=== PATIENT | female | born 1940 | race Caucasian/White ===

== ENCOUNTER 2019-12-30 10:33 | Inpatient (IN) | payer OTHER ==
[~2019-12-30] VITALS: Ht 7.6 cm; Wt 62.0 kg
[2019-12-30 10:34] VITALS: BP 175/90
[2019-12-30] MEDS ORDERED: PROAIR HFA8.5 GM INH (11:04)
[2019-12-30] MEDS ORDERED: NORVASC 2.5 MG2.5 M1 PO (11:05)
[2019-12-30] MEDS ORDERED: ASA81BEC PO (11:05)
[2019-12-30] MEDS ORDERED: OLANZAPINE10 M1 PO ×2 (11:06→15:15)
[2019-12-30] MEDS ORDERED: CALCIUM500 MG PO (11:06)
[2019-12-30] MEDS ORDERED: DEPAKOTE250 MG PO (11:07)
[2019-12-30] MEDS ORDERED: KLOR-CON 1010 MEQ PO (11:07)
[2019-12-30 11:08] LABS: ABSOLUTE NEUTROPHILS 4.2 thou/uL (1.4-8.2); BASOPHILS 0.8 % (0.0-2.0); EOSINOPHILS 3.1 % (0.0-3.0); HEMOGLOBIN 13.3 gm/dL (12.0-15.0); LYMPHOCYTES 24.3 % (24.0-44.0); MCH 28.5 pg (26.0-34.0); MCHC 32.5 g/dL (28.0-37.0); MCV 87.7 fL (80.0-100.0); MONOCYTES 7.1 % (1.0-8.0); PLATELET COUNT 253 thou/uL (150-400); POLYS 64.7 % (36.0-66.0); RBC 4.68 mil/uL (4.20-5.00); RDW 15.1 % (10.5-14.5); WBC 6.5 thou/uL (4.0-11.0)
[2019-12-30] MEDS ORDERED: TERBINAFINE HC250 MG PO (11:13)
[2019-12-30 11:15] LABS: URINE BILIRUBIN NEGATIVE (Negative); URINE BLOOD TRACE (Negative); URINE CLARITY SL CLOUDY; URINE COLOR YELLOW; URINE GLUCOSE-RANDOM* NEGATIVE (Negative); URINE KETONES NEGATIVE (Negative); URINE PROTEIN (DIPSTICK) NEGATIVE (Negative); URINE UROBILINOGEN 0.2 E.U./dl (0.2-1.0)
[2019-12-30 11:16] LABS: URINE LEUKOCYTES-REFLEX 3+ (Negative); URINE NITRITE-REFLEX POSITIVE (Negative)
[2019-12-30 11:19] LABS: CALCIUM 9.4 mg/dL (8.5-10.1); CREATININE 0.9 mg/dL (0.6-1.0); POTASSIUM 3.1 mmol/L (3.5-5.1)
[2019-12-30 11:25] LABS: ALBUMIN 3.9 g/dL (3.4-5.0); TOTAL BILIRUBIN 0.4 mg/dL (<0.1-1.0); TOTAL PROTEIN 7.4 g/dL (6.4-8.2)
[2019-12-30 11:30] LABS: BACTERIA-REFLEX >30 Many /HPF (None Seen); CASTS None Seen /LPF (None Seen); SQUAMOUS 0-3 Few /LPF (0-3)
[2019-12-30 11:31] LABS: CRYSTALS None Seen /LPF (None Seen); URINE RBC 3-10 Few /HPF (0-2); URINE WBC-REFLEX >25 Many /HPF (0-5)
[2019-12-30 12:18] VITALS: BP 175/90
[2019-12-30 12:58] VITALS: BP 175/90
[2019-12-30 13:30] VITALS: BP 172/88
--- NOTE | 2019-12-30 14:03 | NUR ---
PT. ARRIVED IN W/C FROM ER. SHE WAS BROUGHT TO ER BY HER SISTER. HER SISTER REPORTED SHE LIVES ALONE AND IS "OFF THE RAILS" HAVING DELUSIONS, AVH. 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 SISTER REPORTS SHE HAS CHRONIC SCHIZOPHRENIA, DELUSIONS, HTN, RT. KNEE REPLACEMENT (OCTOBER 2019). SISTER REPORTS SHE IS TAKING DEPAKOTE AND OLANZAPIME WHICH WAS INCREASED A COUPLE OF WEEKS AGO. THE SISTER BELIEVES SHE THAT HER MED CHANGES HAVE CAUSED HER TO "GO OFF THE RAILS". THE PATIENT IS ALERT AND ORIENTED X4. SHE IS UNCERTAIN OF HER MEDICATIONS. WILL HAVE TO CALL THE SISTER TO FIND OUT THE MEDICATIONS. THE PT. STATES SHE HAS TWO OLDER SISTERS THAT ARE "OVERBEARING" AND THAT SHE DOES NOT NEED TO BE HERE. ASHLEY Ryan SAW THE PATIENT. RN CALLED TO GET MED LIST FROM SISTER BUT SISTER REPORTED THE ENTIRE LIST IS IN THE PATIENT'S WALLET WHICH WAS SENT TO SECURITY. WILL RETRIEVE WALLET TO GET LIST. PT. EVIDENTUALLY GETS HER MEDS BY MAIL ORDER AND [facility] LOCALLY. PT. IS AMBULATORY, AND STEADY ON HER FEET. SHE WEARS EYEGLASSES AND ONLY HAS THE CLOTHES SHE IS WEARING. SHE STATES SHE HAS LOST 10 LBS RECENTLY BECAUSE HER DR. ASKED HER TO SO SHE DOES NOT PUT SO MUCH PRESSURE ON HER NEW REPLACED KNEE (LT).
--- NOTE | 2019-12-30 14:27 | NUR ---
AURE saw pt removing shoelaces from shoes. She kindly retrieved them from pt and gave them to pt's nurse. SW team will continue to follow pt during her stay on this unit.
[2019-12-30] MEDS ORDERED: SUPER THERAVIT1 EACH PO (15:13)
[2019-12-30 16:11] LABS: TSH 2.753 uIU/mL (0.358-3.740)
[2019-12-30 16:43] LABS: FOLIC ACID 38.5 ng/mL (8.6-58.9)
[2019-12-30 19:32] VITALS: BP 136/83
--- NOTE | 2019-12-30 21:26 | NUR ---
Assumed care on 12/30/19 @ 1900, in bed, awakens to voice and asks for book that she brought into facility with her. None found in locker. Family called and spoke with Niki. Chose to wear day clothes to bed instead of night clothes. A&O x 3-4. Cooperated with assessment and medication. Will continue to monitor for patient safety.
--- NOTE | 2019-12-31 00:04 | NUR ---
In bed, eyes closed, respirations even and unlabored. Bed in low position, will continue to monitor for patient safety.
[2019-12-31 03:16] VITALS: BP 136/83
[2019-12-31 07:30] VITALS: BP 167/97
[2019-12-31 09:30] VITALS: BP 154/80
--- NOTE | 2019-12-31 09:58 | EKG ---
[facility] [place] [address] ELECTROCARDIOGRAM REPORT Name: BHAVNA DUNCAN Room #: [facility] [place] ADM IN M.R.#: [id number] Admission: 12/30/19 Attend Phys: Keshia Andrade MD Discharge: Date of : 44 Report #: [id number] THIS REPORT FOR: cc: FAM - Family physician unknown FAM - Family physician unknown Jonathan Botello MD ~ THIS REPORT FOR: //name// [facility] Test Date: 2019-12-30 Test Time: 16:25:49 Pat Name: BHAVNA DUNCAN Department: Room: [facility] Gender: F [employer] Pulper: Kiran PERRY : 1940 Requested By: Erick Morrell Order Number: [id number] MD: Jonathan Botello Measurements Intervals [place] Rate: 71 P: 38 ID: 150 QRS: -58 QRSD: 123 T: 22 QT: 443 QTc: 482 Interpretive Statements Sinus rhythm RBBB and LAFB No previous ECG available for comparison Electronically Signed On 12-31-2019 9:57:16 CDT by Jonathan Botello [email or web address] <ELECTRONICALLY SIGNED> By: Jonathan Botello MD 12/31/19 0957 1625 1625 Jonathan Botello MD /KERMIT
--- NOTE | 2019-12-31 11:25 | NUR ---
PATIENT CARE ASSUMED AT 1930 - PATIENT ALERT AND ORIENTED. PLEASANT - STATED HAD GOOD NIGHT SLEEP. PATIENT ASKED WHY SHE WAS AT FACILITY. " CLAIMS SISTER'S DECISION THAT SHE NEEDED TO BE ADMITTED." STATES " SEEMS SHE ALWAYS KNOWS BEST." PATIENT HAD BREAKFAST IN HER ROOM. BLOOD PRESSURE ALITTLE HIGH 167/97 GIVEN NORVASC WITH MORNING MEDICATIONS AND DECREASED TO 154/80. PATIENT STATES N O PAIN OR DISCOMFORT WITH RIGHT KNEE. AMBULATES AROUND UNIT - ADVISED TO UTILIZE WALKER FOR STEADINESS. MEDICATIONS ADMINISTERED AND TOLERATED WELL. ATTENDED GROUP
--- NOTE | 2019-12-31 13:29 | NUR ---
SW called and spoke with pt's guardian and sister Radha Macias , and SW completed intake assesment and TP. Radha Macias reported that her sister has had HI symtoms for at least 30 years. Pt has 1 son who lives in[place] but is not a support. Radha Macias reported that this pt was giving away personal items and cleane dout her fridge this week. She also belives that her sister will change her dose on her meds when she feels that she was instructed through an internal instruction. Radha Macias reported that her sister is " very good " at not telling the truth of the severity of her hallucinations. Pt sees Dr Rivera for psycho therapy for 15 minutes a month and Dr Valentin Cain for psych at [facility] every 3 momths . Radha Macias is hoping that this pt will be able to return to her IL in [place] called " [facility]". SW suggested that pt have more wrap around services that include CM and in hoe visits. it is evident that the sisters are aging and she has her own physical limitations to commute and f/u as needed. SW provided supprt and guidance. Pt and her sister also go to a [place] support group through [facility] but only during the summer months so they don't drive home in the dark.
[2019-12-31 19:36] VITALS: BP 136/67
[2019-12-31 22:00] VITALS: BP 136/67
--- NOTE | 2020-01-01 01:01 | NUR ---
PATIENT WAS UP IN DINING ROOM TONIGHT UNTIL SHE WENT TO BED AROUND 2100. SHE IS A/0X3-4. SHE DENIES PAIN. SHE DENIES SI/HI/AVH. SHE STATES SHE IS TIRED TONIGHT AND WENT TO BED QUICKLY. SHE HAS BEEN CALM AND COOPERATIVE. SHE DENIES SI/HI/AVH. SHE IS INDEPENDENT WITH CARES. SHE IS NEATLY DRESSED. PATIENT HAS BEEN APPROPRIATE WITHOUT BEHAVIORS. BED IN LOW POSITION. ROUTINE ROUNDING FOR SAFETY ASSESSMENT. PATIENT SLEEPING AT THIS TIME. BED IN LOW POSITION. CONTINUING TO MONITOR.
[2020-01-01 05:33] LABS: CREATININE 0.7 mg/dL (0.6-1.0); MAGNESIUM 2.3 mg/dL (1.8-2.4); POTASSIUM 3.7 mmol/L (3.5-5.1)
[2020-01-01 08:27] VITALS: BP 136/80
--- NOTE | 2020-01-01 14:57 | NUR ---
SW checked in with Pt 1 on 1 due to group being canceled because of to COVID-19 restictions. Pt's mood seemed calm. Pt stated she did not have any concerns at this time. Pt was able to have a general conversation with SW about lunch and socializing. SW will continue to check in on Pt during her stay
--- NOTE | 2020-01-01 15:40 | NUR ---
ALERT AND ORIENTED X3. VERY QUIET AND PLESANT AND COOPERATIVE. AMBULATES WITH SLOW STEADY GAIT. DENIES PAIN. GOOD APPETITE FOR MEALS. CONTINENT OF BOWEL AND BLADDER. PARTICIPATE WITH GROUPS.
[2020-01-01 19:26] VITALS: BP 142/78
--- NOTE | 2020-01-01 23:42 | NUR ---
PROGRESS PT A/O X4 A LITTLE FORGETFUL. REQUESTED CLOTHING FOR TOMORROW REPEATEDLY ESCORTED TO LOCKER TO GET CLOTHING AND PT PROCEEDED TO PUT COAT ON AND GET PURSE STATED SHE WAS BEING DISCHARGED. RE-ORIENTED PT TO SETTING AND POC PT R/V UNDERSTANDING PUT COAT AND PURSE AWAY AND GOT HER CLOTHING READY FOR THE AM. AMBULATED BACK TO ROOM AND GOT IN BED FOR THE NIGHT . CONTINUE TO MONITOR.
[2020-01-02 08:48] VITALS: BP 168/79
[2020-01-02 10:09] VITALS: BP 168/79
--- NOTE | 2020-01-02 10:16 | NUR ---
ASSUMED CARE AT 0700 THIS MORNING. PT. IS AWAKE, ALERT AND OUT FOR BREAKFAST. SHE TOOK HER MORNING MEDICATIONS WITHOUT PROBLEMS NOTED. AFTER BREAKFAST AND ASSESSMENT, SHE CALLED THIS RN OVER TO HER SIDE AND STATED, "I AM LEAVING TODAY I HAVE CLOTHES LOCKED UP, BELONGINGS IN MY ROOM, CAN WE GET THESE TOGETHER?" SHE WAS TOLD SOON I SEE THE DR. GARCIA, WE WILL WORK TOWARD THAT GOAL. SHE ACCEPTED THIS.
--- NOTE | 2020-01-02 13:02 | NUR ---
AURE spoke with Radha Macias who said she provided the ED a copy of guardianship docs. She said she will take a picture and email them. She said it is her hope that pt returns to [facility] if that is the suggestion of the team. She said that lately pt has not been taking her medications correctly. She believes pt may have the beginning stages of dementia. Dr. Lind spoke with Radha Macias and suggested possibly administering a neurocognitive exam during her stay. SW team will continue to follow pt during her stay on this unit.
--- NOTE | 2020-01-02 15:28 | NUR ---
SW did a check in with pt instead of group due to COVID-19 guidelines. Pt was in a meeting with Dr. Lind.
[2020-01-02 19:35] VITALS: BP 123/80
--- NOTE | 2020-01-03 04:09 | NUR ---
Pt was in bed at change of shift. denies any concerns. sister Radha Macias called and spoke with pt. pt took her meds with no problems and was able to go to sleep with bathroom interruptions. no s/s of distress. will cont to monitor
[2020-01-03 09:04] VITALS: BP 130/86
--- NOTE | 2020-01-03 14:04 | NUR ---
Pt was sleeping during group time
--- NOTE | 2020-01-03 17:00 | NUR ---
PATIENT UP AD TIFFANY. IN DINING ROOM FOR THIS SHIFT. SITS WITH OTHER PATIENTS BUT DOES NOT TAKE INITIATIVE TO BEGIN INTERACTION WITH OTHERS. AOX4. PATIENT MOVED TO ANOTHER ROOM THIS SHIFT R/T PATIENT SHE WAS ROOMED WITH. PATIENT ACCEPTED CHANGE WELL WHEN INFORMED OF CHANGE.
[2020-01-03 20:03] VITALS: BP 144/65
--- NOTE | 2020-01-04 02:49 | NUR ---
ASSUMED CARE FROM DAY SHIFT PT SMILING CHEERFUL , HAVE NO CONCERNS, DENIES PAIN, ACTIVE IN CONVERSTAION WHEN SISTER CALLED. PO MEDICATION TAKEN AND HS SNACK EATEN. PT RESTING QUIELTY WITHOUT CHANGES THROUGHOUT FREQ ROUNDING, WILL CONITNUE WITH CURRENT PLAN OF CARE AND WILL REPORT CHANGES.
[2020-01-04 08:50] VITALS: BP 133/79
--- NOTE | 2020-01-04 09:49 | NUR ---
ASSUMED CARE AT 0700 THIS MORNING. SHE GOT UP, DRESSED AND ON THE UNIT FOR MEALS. SHE WAS COOPERATIVE WITH TAKING HER MEDICATIONS. PT. IS TO BE DISCHARGED TO [facility]. SHE ATTENDED MORNING GROUP. SHE IS PLEASANT AND COOPERATIVE. CLOTHING GATHERED FOR DISCHARGE.
--- NOTE | 2020-01-04 10:02 | NUR ---
AURE D/C Note AURE spoke with Radha Macias about pt discharging today. Radha Macias disagreed and said pt should stay longer because she "lives in her own world;" she said she can answer simple orientation questions but when you ask something like "what's on your mind" that's when her deficits begin to show. AURE agreed that may be so but explained that is not enough for her to meet criteria. SW also agreed that pt could have some cognitivie deficits, but that at this time she may not have reached the level of not being able to care for herself. Last, AURE explained with the threat of the virus, if pt's do not meet criteria this units attempts to discharge them to an environment that is less likely to have the threat of the virus. GAETANO said she understood but that her sister really needs more attention from the hospital; she said everytime she is sent to the hospital this happens. SW provided supportive listening. GAETANO and AURE agreed on a 1500 pickle maker time in which will transport pt. However, she asked to also speak to Dr. Lind. AURE and Dr. Lind contacted . No answer. Dr. Lind left a msg explaining that pt may be more appropiate for [facility] but at this time she is not showing enough deficits that would qualify for more intensive treatment. No other needs for AURE team to address at this time.
[2020-01-04 10:07] VITALS: BP 133/79
[2020-01-04] MEDS ORDERED: NORVASC10 MG PO (10:13)
[2020-01-04] MEDS ORDERED: LISINOPRIL10 MG PO (10:14)
[2020-01-04] MEDS ORDERED: ZYPREXA 5 MG TAB5 M2 PO (10:16)
[2020-01-04] MEDS ORDERED: CALTRATE-600 W1 EACH PO (10:17)
[2020-01-04] MEDS ORDERED: OXYBUTYNIN 5 MG5 M1 PO (10:17)
[2020-01-04] MEDS ORDERED: VITAMIN D325 MCG PO (10:17)
--- NOTE | 2020-01-05 21:16 | D ---
[facility] [place] [address] DISCHARGE SUMMARY Name: BHAVNA DUNCAN Room #: 527B-B DIS IN M.R.#: [id number] Admission: 12/30/19 Attend Phys: Jorden Lind DO Discharge: 01/04/20 Date of : 44 Report #: [id number] THIS REPORT FOR: cc: [place] - Family physician unknown FAM - Family physician unknown Jorden Lind DO ~ THIS REPORT FOR: //name// CC: Jorden MAO unknown DATE OF SERVICE: 01/04/2020 INPATIENT PSYCHIATRIC DISCHARGE SUMMARY ATTENDING PHYSICIAN: Jorden Lind DO PRODUCTION ZONE LEADER AT THE TIME OF DISCHARGE: Jorden Mckeon MD DISCHARGE DIAGNOSES: Schizophrenia by history and currently, also mild neurocognitive disorder. MEDICAL COMORBIDITIES: Include hypertension on Norvasc and lisinopril. Hyperkalemia, the patient is being replaced. Klebsiella UTI, continue Keflex. DISCHARGE PLAN: The patient is discharging to the [facility]. The patient will get psychiatric care with Dr. Tino Mccain, session scheduled for this coming Wednesday, 01/07. The patient also should followup with primary care physician in 1 month. Her sister, Radha Gonzalez, is her guardian which will see to these arrangements. Other outpatient services as per the social work note. DISCHARGE MEDICATIONS: Are as follows, amlodipine 10 mg p.o. daily, lisinopril 10 mg p.o. daily, olanzapine was given 12.5 mg p.o. at bedtime. I increased it for discharge to 15 mg p.o. at bedtime for good measure. Interestingly, the patient's olanzapine had apparently been increased to 20 mg around 12/14/2019, but the patient did not require a high of a dose to stabilize during this admission. Calcium carbonate 500 mg p.o. b.i.d. for supplementation. Olanzapine for schizophrenia. Oxybutynin 5 mg p.o. t.i.d. Consideration should be given to alternative treatment for her bladder dysfunction, given the anticholinergic properties of Ditropan; however, given the brief admission, obviously that will be continued at discharge. Also, cholecalciferol 5000 international units p.o. daily, aspirin 81 mg p.o. daily. The patient is prescribed 250 mg p[address]o. daily per Dr. Mccain and that is an atypical dose, but again deferred to her outpatient psychiatrist for adjustment of that and multivitamin p.o. daily. [facility] [address] [place] [address] DISCHARGE SUMMARY Name: BHAVNA DUNCAN Room #: 527B-B [facility].#: [id number] Admission: 12/30/19 Attend Phys: Jorden Lind, Discharge: 01/04/20 Date of : 44 Report #: [id number] LABORATORY DATA: CBC is grossly normal. Chemistries within normal limits except BUN 21, anion gap 6. Also, magnesium was 2.3 this admission. Urinalysis showed trace blood, positive nitrites, 3+ leukocyte esterase, positive rbc's, positive white blood cells, positive bacteria. Culture was Klebsiella oxytoca, Raoultella. The duration of antimicrobial therapy this admission was from the 12/29 to 01/01. REASON FOR ADMISSION: Back on 12/29 is as follows, brought to the ED by her guardian. Apparently, the patient has been receiving information from her psychiatrist through his ability t read her mind. In addition, she has been obsessively cleaning the house and throwing all items out. HOSPITAL COURSE: The patient was admitted to Geriatric Psychiatry Unit. At the time I saw her Wednesday of this week, which is the , the patient was in good behavior, participating in groups, free of suicidal or homicidal ideations, keeping an acceptable level of hygiene. She does have some delusional thinking. This appears to be fairly fixed chronic in nature. I had a telephone conference with her guardian and explained that given both the acuity requirement of the unit and the current Coronavirus spread that the patient certainly is not going to be free of delusional thinking. I did make the recommendation and consideration be given to upgrading her to assisted living level of care given her mild neurocognitive disorder and also ongoing concern of medication compliance as well as encouraging structured activities. CONDITION ON DAY OF DISCHARGE: VITAL SIGNS: Temperature 36.4, pulse wnl, respirations 18, BP 133/79, O2 sat 96%. MUSCULOSKELETAL: Normal gait and station. MENTAL STATUS EXAMINATION: This is a well-developed, fairly nourished female appearing stated age. Attention intact. Concentration intact. Speech is normal rate, volume and tone. Thought process is linear and goal directed. Thought content focused on discharge. No SI, no HI. No auditory, visual or tactile hallucinations. Memory not formally tested. Insight limited. Judgment fair to limited. Fund of knowledge above average. PROGNOSIS: For this patient is guarded and will depend on the level of support the patient receives. <ELECTRONICALLY SIGNED> By: Jorden Lind DO 01/05/206 2331 0047 Jorden Lind DO /nt
== END 2020-01-04 15:00 | DRG 885 ==
LOC: ER 10:33 → SBH 12:18 → EROBS 12:18 → SBH 12:18
PROVIDERS: Internal Medicine; Physician Assistant; ADMIT Psychiatry & Neurology Psychiatry
DX: F20.9 Schizophrenia, unspecified (principal); F01.51 Vascular dementia, unspecified severity, with behavioral disturbance; N39.0 Urinary tract infection, site not specified; I10 Essential (primary) hypertension; E87.6 Hypokalemia; E87.5 Hyperkalemia; B96.1 Klebsiella pneumoniae [K. pneumoniae] as the cause of diseases classified elsewhere; Z96.651 Presence of right artificial knee joint; Z90.710 Acquired absence of both cervix and uterus; Z79.82 Long term (current) use of aspirin; Z79.899 Other long term (current) drug therapy; Z88.0 Allergy status to penicillin; Z88.8 Allergy status to other drugs, medicaments and biological substances; Z81.8 Family history of other mental and behavioral disorders
CPT/HCPCS: 10880

== ENCOUNTER 2020-12-23 10:34 | Emergency (ER) | payer OTHER ==
[~2020-12-23] VITALS: Ht 160 cm; Wt 61.2 kg
--- NOTE | ~2020-12-23 | EMS ---
[address] [address] EMS Patient Care Report Name: BHAVNA DUNCAN Room #: PRE KEM M.RWang#: [id number] Admission: Attend Phys: Discharge: Date of : 44 Report #: [id number] THIS REPORT FOR: //name// Report Transmitted: 12/23/2020 10:36 EMS Care Summary [facility] MED-ACT Incident [id number] @ 12/23/2020 09:55 Incident [address] [place] [address] Patient BHAVNA DUNCAN Female, 80 Years 1940 Patient Address [address] [place] [address] Patient History Behavioral/Psychiatric Disorder,Dementia,Hypertension (HTN),Hyperlipidemia,Schizophrenia, Patient Allergies Penicillin allergy,Meloxicam, Patient Medications Spironolactone, Ziprasidone, Losartan, Atorvastatin, Oxybutynin, Chief Complaint "She is not her normal self" Disposition Transported No Lights/[place] Reason Psychiatric Problem/Abnormal Behavior/Suicide Attempt Transported To [facility] Narrative C- "She has not been acting her normal self" [facility] [address] [place] [address] EMS Patient Care Report Name: BHAVNA DUNCAN Room #: PRE Mario.#: [id number] Admission: Attend Phys: Discharge: Date of : 44 Report #: [id number] Hx- Dispatched C3 with caution to memory care for 80 yo f pt. Staff states pt is baseline GCS 14 with dementia and schizophrenia, they state her auditory hallucinations have increased. They state since she has not left her room on her own accord. They state she usually gets around on her own and comes down to eat food every day. They state that they thought she had a UTI and started antibiotics but stopped Wednesday after x3 days tx. Family requested [facility] due to pt having psych care at that facility before. Staff states "pt has not said outright she has suicidal thoughts, but make statements about wanting to go to home" pt expresses no desire A- Pt found laying comfortably in bed Initial Vitals @10:28P: 75,SpO2: 95, @10:18P: 87,BP: 194/96,SpO2: 96, @10:14P: 90,R: 18,BP: 183/109,Pain: 0/10,GCS: 14,Temp: 98F,SpO2: 95,Revised Trauma: 12, Assessments @10:10MENTAL:Hallucinations,Person Oriented,Place Oriented,SKIN:HEENT:LUNG SOUNDS:ABDOMEN:PELVIS//GI:EXTREMITIES:Left Arm: No Abnormalities,Right Arm: No Abnormalities,Left Leg: No Abnormalities,Right Leg: No Abnormalities,PULSE:NEURO: Impression Behavioral/psychiatric episode Timeline 09:53,Call Received 09:53,Psap Call 09:55,Dispatched 09:55,En Route 10:01,On Scene 10:07,At Patient 10:14,BP: 183/109 M,PULSE: 90,RR: 18 R,SPO2: 95 Ox,ETCO2: ,BG: ,PAIN: 0,GCS: 14, 10:17,Depart Scene 10:18,BP: 194/96 M,PULSE: 87,RR: R,SPO2: 96 Ox,ETCO2: ,BG: ,PAIN: ,GCS: , 10:28,BP: / M,PULSE: 75,RR: R,SPO2: 95 Ox,ETCO2: ,BG: ,PAIN: ,GCS: , 10:32,At Destination 10:45,Call Closed Disclaimer v1.1 Copyright 2020 [employer] [facility] [address] [place] [address] EMS Patient Care Report Name: DAKOTABHAVNA Room #: PRE M.R.#: [id number] Admission: Attend Phys: Discharge: Date of : 44 Report #: [id number] This EMS Care Summary contains data elements from the applicable legal record (which may be displayed differently). It is designed to provide pertinent information for the following purposes: continuity of care, clinical quality, and state data reporting. The complete legal record is available to ED staff and administrators of the receiving hospital in [employer]'s Patient Tracker. All data is provided "as is."
[~2020-12-23 10:34] MED LIST: ASA81BEC PO; CALCIUM500 MG PO; CALTRATE-600 W1 EACH PO; DEPAKOTE250 MG PO; KLOR-CON 1010 MEQ PO; LISINOPRIL10 MG PO; NORVASC 2.5 MG2.5 M1 PO; NORVASC10 MG PO; OLANZAPINE10 M1 PO; OXYBUTYNIN 5 MG5 M1 PO; PROAIR HFA8.5 GM INH; SUPER THERAVIT1 EACH PO; TERBINAFINE HC250 MG PO; VITAMIN D325 MCG PO; ZYPREXA 5 MG TAB5 M2 PO
[2020-12-23 11:30] LABS: ABSOLUTE NEUTROPHILS 5.3 thou/uL (1.4-8.2); BASOPHILS 0.8 % (0.0-2.0); EOSINOPHILS 1.6 % (0.0-3.0); HEMATOCRIT 34.9 % (37.0-47.0); HEMOGLOBIN 11.5 gm/dL (12.0-15.0); LYMPHOCYTES 21.1 % (24.0-44.0); MCH 29.1 pg (26.0-34.0); MCHC 32.9 g/dL (28.0-37.0); MCV 88.5 fL (80.0-100.0); MONOCYTES 6.1 % (1.0-8.0); PLATELET COUNT 297 thou/uL (150-400); POLYS 70.4 % (36.0-66.0); RBC 3.95 mil/uL (4.20-5.00); RDW 13.8 % (10.5-14.5); WBC 7.5 thou/uL (4.0-11.0)
[2020-12-23 11:47] LABS: ANION GAP 8 mmol/L (7-16); BUN 27 mg/dL (7-18); CALCIUM 10.2 mg/dL (8.5-10.1); CHLORIDE 98 mmol/L (98-107); CO2 26 mmol/L (21-32); CREATININE 1.7 mg/dL (0.6-1.0); GLUCOSE 100 mg/dL (74-106); POTASSIUM 4.1 mmol/L (3.5-5.1); SALICYLATE < 2.8 mg/dL (2.8-20.0); SODIUM 132 mmol/L (136-145)
[2020-12-23 14:05] LABS: URINE BILIRUBIN NEGATIVE (Negative); URINE BLOOD NEGATIVE (Negative); URINE CLARITY CLEAR; URINE COLOR YELLOW; URINE GLUCOSE-RANDOM* NEGATIVE (Negative); URINE KETONES NEGATIVE (Negative); URINE LEUKOCYTES-REFLEX NEGATIVE (Negative); URINE NITRITE-REFLEX NEGATIVE (Negative); URINE PROTEIN (DIPSTICK) NEGATIVE (Negative); URINE UROBILINOGEN 0.2 E.U./dl (0.2-1.0)
[2020-12-23 14:15] LABS: AMP/METHAMP Negative (Negative); BARBITURATES Negative (Negative); BENZODIAZEPINES Negative (Negative); COCAINE Negative (Negative); METHADONE Negative (Negative); OPIATES Negative (Negative); PCP Negative (Negative)
[2020-12-23 19:20] VITALS: BP 142/80
[2020-12-24] MEDS ORDERED: LIPITOR 10 MG10 M1 PO (14:14)
[2020-12-24] MEDS ORDERED: BENZTROPINE MES1 MG PO (14:14)
[2020-12-24] MEDS ORDERED: COZAAR 50 MG TA50 MG PO (14:15)
[2020-12-24] MEDS ORDERED: OXYBUTYNIN 5 MG5 M2 PO (14:15)
[2020-12-24] MEDS ORDERED: SPIRONOLACTONE25 MG PO (14:16)
[2020-12-24] MEDS ORDERED: GEODON40 MG PO (14:16)
[2020-12-24] MEDS ORDERED: CALCIUM ANTACI400 MG PO (14:17)
[2020-12-24] MEDS ORDERED: LOPERAMIDE 2 MG2 M1 PO (14:17)
[2020-12-24] MEDS ORDERED: HYDRALAZINE 2525 MG PO (14:18)
[2020-12-24] MEDS ORDERED: LORAZEPAM0.5 MG/1 M PO (14:19)
[2020-12-24] MEDS ORDERED: LORAZEPAM 0.50.5 MG PO (14:20)
== END 2020-12-23 19:21 ==
LOC: ER 10:34
PROVIDERS: Nurse Practitioner
DX: F41.9 Anxiety disorder, unspecified (principal); F91.9 Conduct disorder, unspecified; Z79.82 Long term (current) use of aspirin; Z79.899 Other long term (current) drug therapy; Z88.0 Allergy status to penicillin; Z88.8 Allergy status to other drugs, medicaments and biological substances; Z20.822 Contact with and (suspected) exposure to COVID-19

== ENCOUNTER 2020-12-23 15:52 | Inpatient (IN) | payer OTHER ==
[~2020-12-23] VITALS: Ht 162.6 cm; Wt 63.6 kg
[2020-12-23 19:20] VITALS: BP 154/86
--- NOTE | 2020-12-24 03:36 | NUR ---
RECEIVED REPORT FROM [facility] RN, PT ARRIVED 1919 PT AAOX4, VS B/P 154/86, P 72, R 16, T 97.2, 02 SAT 98% RA RR EVEN AND NONLABORED ON RA. PT DENIES SI/HI AND PAIN. PT SKIN W/D/I. PT REPORTS THAT THE FORMER DON WHO WAS FIRED WAS IN HER ROOM, THEN SPOKE ABOUT SHE IS HERE BECAUSE SHE IS SUPPOSED TO HAVE SURGERY. PT DOES PRESENT WITH DELUISION. PT LUNGS CLEAR, HT RR, ABD ACTIVE. PT HAS A HX HTN, HLD, SCHIZOPHRENIA, DEMENTIA, UTI. OF NOTE, THIS IS A NEW ADMIT, WHEN ASKED PT TO SIGN CONSENTS PT REFUSED, DPOA CONTACTED JORGE AIKEN AND RECEIVED CONSENTS VIA TELEPHONE. HCP Janis RICHARDS DO CONTACTED AND ORDERS RECEIVED. HCP Bebe ALMONTE NP CONTACTED. PT HAS SHOW ZERO S/S OF ACUTE DISTRESS AND PT WILL CONTINUE TO BE MONITOR [facility] PROT[facility]OL
[2020-12-24 06:13] LABS: CALCIUM 9.8 mg/dL (8.5-10.1); CREATININE 1.6 mg/dL (0.6-1.0); POTASSIUM 3.9 mmol/L (3.5-5.1)
[2020-12-24 07:00] VITALS: BP 158/106
--- NOTE | 2020-12-24 11:19 | NUR ---
Nutrition: pt admitted with hallucinations and seen due to new admission [facility]. Pt eating well, 80% of breakfast this am with hx of good appetite. Stable weights past year. PMH reviewed. Pt on vitamin, vitamin D and calcium. Pt voiced no questions for RD. Low nutrition risk.
[2020-12-24 12:01] LABS: URINE BILIRUBIN NEGATIVE (Negative); URINE BLOOD NEGATIVE (Negative); URINE CLARITY CLEAR; URINE COLOR YELLOW; URINE GLUCOSE-RANDOM* NEGATIVE (Negative); URINE KETONES TRACE (Negative); URINE LEUKOCYTES-REFLEX TRACE (Negative); URINE NITRITE-REFLEX NEGATIVE (Negative); URINE PROTEIN (DIPSTICK) NEGATIVE (Negative); URINE SPECIFIC GRAVITY 1.025 (1.005-1.035); URINE UROBILINOGEN 0.2 E.U./dl (0.2-1.0)
[2020-12-24 13:48] LABS: HEMATOCRIT 37.5 % (37.0-47.0); MCHC 32.1 g/dL (28.0-37.0); MCV 90.5 fL (80.0-100.0); RBC 4.14 mil/uL (4.20-5.00); RDW 14.2 % (10.5-14.5); WBC 9.6 thou/uL (4.0-11.0)
[2020-12-24] MEDS ORDERED: LIPITOR 10 MG10 M1 PO (14:14)
[2020-12-24] MEDS ORDERED: BENZTROPINE MES1 MG PO (14:14)
[2020-12-24] MEDS ORDERED: OXYBUTYNIN 5 MG5 M2 PO (14:15)
[2020-12-24] MEDS ORDERED: COZAAR 50 MG TA50 MG PO (14:15)
[2020-12-24] MEDS ORDERED: SPIRONOLACTONE25 MG PO (14:16)
[2020-12-24] MEDS ORDERED: GEODON40 MG PO (14:16)
[2020-12-24] MEDS ORDERED: LOPERAMIDE 2 MG2 M1 PO (14:17)
[2020-12-24] MEDS ORDERED: CALCIUM ANTACI400 MG PO (14:17)
[2020-12-24] MEDS ORDERED: HYDRALAZINE 2525 MG PO (14:18)
[2020-12-24] MEDS ORDERED: LORAZEPAM0.5 MG/1 M PO (14:19)
[2020-12-24] MEDS ORDERED: LORAZEPAM 0.50.5 MG PO (14:20)
--- NOTE | 2020-12-24 16:16 | NUR ---
Aure was able to talk to speak to the Pt's sister/DPOA, Radha Macias O'roberto. Radha Macias was able to give some history. Pt was discharged by her psychiatrist Dr. Cain due to missing 3 appointments. Pt started isolating herself in her room and not eating or taking meds. Pt stating the voice told her not to eat. Pt does have a pattern of not taking her medications when she starts to fell better. 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 AURE was also able to speak with Anderson at [facility]. AURE inquired about if the facility had a psychiatrist that rounds there. Anderson informed they do however they psychiatrist has been on leave and unable to see the Pt. AURE stressed the importance of Pt having ongoing psychiatry when she returns. AURE will continue to follow
--- NOTE | 2020-12-24 18:33 | NUR ---
Alert and orientated X4. Speaks at rapid pace under breath at times but denies hallucinations. Denies SI/HI. Able to ambulate with regular, steady gait. Breath sounds clear. Reg HR auscultated. Color pink with brisk capillary refill and palpable peripheral pulses. No edema. Active bowel sounds over soft, rounded abdomen. #22g jelco placed per L forearm, 1l NS hung and infusing at 250cc/hr to complete at 1840, site soft and flat, flushes easily. Renal ultrasound complete. Interactive with peers and staff. No s/o distress.
[2020-12-24 20:03] VITALS: BP 127/61
[2020-12-25 05:54] LABS: HEMATOCRIT 31.5 % (37.0-47.0); HEMOGLOBIN 10.6 gm/dL (12.0-15.0); MCH 29.8 pg (26.0-34.0); MCHC 33.5 g/dL (28.0-37.0); MCV 88.7 fL (80.0-100.0); RBC 3.55 mil/uL (4.20-5.00); RDW 13.7 % (10.5-14.5); WBC 7.7 thou/uL (4.0-11.0)
[2020-12-25 06:26] LABS: CALCIUM 9.5 mg/dL (8.5-10.1); CREATININE 1.7 mg/dL (0.6-1.0); MAGNESIUM 1.9 mg/dL (1.8-2.4); POTASSIUM 4.2 mmol/L (3.5-5.1)
[2020-12-25 10:13] VITALS: BP 149/91
[2020-12-25 19:40] VITALS: BP 149/81
--- NOTE | 2020-12-25 20:03 | NUR ---
0700 ASSUMED CARE OF PATIENT, PATIENT IN BED AT THAT TIME. PATIENT CALM AND COOPERATIVE. MEDICATION TAKEN WHOLE WITHOUT DIFFICULTY. PATIENT TO ROOM AFTER BREAKFAST. LS CLEAR, BS ACTIVE, NO C/O PAIN. WHEN PATIENT WT WAS OBTAINED PATIENT ASKED IF DAUGHTER COULD BE GET HER WEIGHT ALSO. PATIENT STATES DAUGHTER WAS STANDING IN ROOM WITH ETYMOLOGY PROFESSOR AND PATIENT. PATIENT THEN STATES "DAUGHTER IS GONE. PATIENT DENIES SI. PATIENT AMB WITH STEADY GAIT. REPORT GIVEN TO SENIOR QA TESTER
--- NOTE | 2020-12-26 04:26 | NUR ---
PT APPROACHED IN ROOM UPON INITIAL ASSESSMENT THIS PM AT 1945-NOTED TO BE RESTING QUIETLY IN BED WITH EYES CLOSED.DOES COOPERATIVE WITH COMING OUT TO DAYROOM TO GET SNACK AND TAKE HS MEDICATIONS. ORDER FOR 500 CC BOLUS NS RECEIVED AND IV FLUIDS STARTED IN LEFT WRIST SALINE LOCK AT APPROX 2000-DID SIT IN DAYROOM THROUGHT ADMINISTRATION OF BOLUS TO ALLOW CONSTANT OBSERVATION BY STAFF. NOTED TO BE TALKING TO UNSEEN OTHERS -APPEARS TO GLANCE AROUND ROOM AND UP AT CEILING AND CONVERSE-SPEECH IS SOFT,MUMBLED AND DIFFICULT FOR STAFF TO UNDERSTAND SITTING NEXT TO HER AT TABLE. WHEN QUESTIONED WHO SHE WAS TALKING TO IS GUARDED STATING "OH NO ONE REALLY" DID TAKE HS MEDICATIONS WITHOUT RESISTANCE-OFFERED PRN ATIVAN FOR SLEEP OR IF FEEELING NERVOUS REFUSES STATING "I DON'T HAVE ANY PROBLEMS SLEEPING" TO BED AT APPROX 2200 AFTER IV FLUIDS COMPLETED. GAIT IS STEADY WITHOUT ASSISTIVE DEVICES. OFFERS NO COMPLAINTS DURING PM PHYSICAL ASSESSMENT.
[2020-12-26 09:27] VITALS: BP 142/87
[2020-12-26 15:00] LABS: CALCIUM 9.3 mg/dL (8.5-10.1); CREATININE 1.7 mg/dL (0.6-1.0); POTASSIUM 4.1 mmol/L (3.5-5.1)
--- NOTE | 2020-12-26 16:17 | NUR ---
0700 ASSUMED CARE OF PATIENT, PATIENTIN ROOM AT THAT TIME. PATIENT OUT TO DAYROOM AMB WITH STEADY GAIT. PATIENT NOTED TALKING TO SELF AND APPEARS IF TALKING TO SOMEONE AT TIME. PATIENT SPEAKS IN SOFT TONE AND MUMBLES MAKING IT DIFFICULT TO UNDERSTAND AT TIMES. MEDICATION TAKEN WHOLE WITHOUT DIFFICULTY. PRESENT IN GROUPS. IN PATIENT ROOM PATIENT STATES HER DAIUGHTER IS THERE, WHEN ASKED ABOUT DAUGHTER PATIENT QUICLY CHANGES STORY. OBSERVED LOOKING UP STARING WHILE TALKING. CALM AND COOPERATIVE, BS ACTIVE, LS CLEAR. VS BP-142/87 P-73 R-20 T-97.3 SATS 96%.
[2020-12-26 19:53] VITALS: BP 136/79
--- NOTE | 2020-12-27 02:32 | NUR ---
SITTING AWAY FROM PEERS IN CORNER OF DAYROOM MUMBLING QUIETLY TO SELF ON INITIAL ASSESSMENT THIS PM AT APPROX 1945-ANXIOUS FACIAL EXPRESSION AND TENSE,RIGID POSTURE NOTED. APPEARS HYPERVIGILANT DURING 1;1 INTERACTION WITH THIS RN EYES DARTING AROUND DAYROOM AND APPEARS TO STARTLE WITH ANY NOISE OR MOVEMENT IN ROOM. DID TAKE PM MEDICATIONS WITHOUT RESISTANCE AND WHEN OFFERED PRN ATIVAN TO HELP RELAX AND SLEEP STATES "MAYBE I'LL SEE" DOES REPORT PAIN TO LEFT WRIST SALINE LOCK SITE AND REQUESTING IT BE REMOVED. DOES APPEAR TO BE REDNESS TO SITE-NO WARMTH OR EDEMA NOTED -SALINE LOCK DC'D PER MD ORDER. TO BED AT APPROX 2145-DURING 2229 ROUNDS NOTED TO BE SITTING AT SIDE OF ROOMMATES BED TALKING QUIETLY AND WATCHING ROOMATE SLEEP. DID COME OUT TO DAYROOM WITH PROMPTING AND REQUESTED A PEN AND PAPER TO "TAKE NOTES" WROTE FOR APPROX 10 MINUTES THEN RETURNED TO ROOM-WHEN STAFF ENTERED ROOM WAS AGAIN SITTING AT SIDE OF ROOMATES BED -DID TAKE ATIVAN 0.5MGPO PRN -ASSISTED TO BED AND APPEARS TO BE RESTING QUIETLY AT 2315 ROUND.
[2020-12-27 06:21] LABS: URINE BILIRUBIN NEGATIVE (Negative); URINE BLOOD TRACE (Negative); URINE CLARITY CLEAR; URINE COLOR YELLOW; URINE GLUCOSE-RANDOM* NEGATIVE (Negative); URINE KETONES NEGATIVE (Negative); URINE NITRITE-REFLEX NEGATIVE (Negative); URINE PROTEIN (DIPSTICK) NEGATIVE (Negative); URINE SPECIFIC GRAVITY 1.015 (1.005-1.035); URINE UROBILINOGEN 0.2 E.U./dl (0.2-1.0)
[2020-12-27 06:22] LABS: URINE LEUKOCYTES-REFLEX 1+ (Negative)
[2020-12-27 06:51] LABS: CASTS None Seen /LPF (None Seen); MUCUS 0-3 Light strn/LPF (None Seen); SQUAMOUS 0-3 Few /LPF (0-3)
[2020-12-27 06:52] LABS: BACTERIA-REFLEX 1-9 Few /HPF (None Seen); CRYSTALS None Seen /LPF (None Seen); URINE RBC 0-2 Rare /HPF (0-2); URINE WBC-REFLEX 0-5 Rare /HPF (0-5); WBC CLUMPS Rare (None Seen)
[2020-12-27 09:42] VITALS: BP 159/96
--- NOTE | 2020-12-27 14:44 | NUR ---
Alert and orientated X4. Calm, cooperative and compliant. Denies SI/HI. Denies hallucinations. Interacting with peers and staff. States she wants to be discharged today. Breath sounds clear. Reg HR auscultated. Color pink with brisk capillary refill and palpable peripheral pulses. Independent with voiding. Active bowel sounds over soft, flat abdomen. Facility called wanting update. Currently participating in group, no s/o distress.
--- NOTE | 2020-12-27 20:35 | NUR ---
PT UP AT DESK AT SHIFT CHANGE AND WANTING TO KNOW IF SHE CAN LEAVE. PT HAD TO BE TOLD THAT SHE WILL PROBABLY BE HERE TILL WEDNESDAY TO TALK TO THE DR. SHE WAS OK WITH THAT AND LEFT THE DESK. PT WAS SLEEPY WHEN GOING TO ROOM FOR MED ADM. PT DID AWAKE AND TOOK MEDS WHOLE WITH WATER. PT LAYED DOWN AND BACK TO BED.
[2020-12-27 20:46] VITALS: BP 164/91
[2020-12-27 20:55] VITALS: BP 164/91
--- NOTE | 2020-12-28 05:09 | NUR ---
PT HAS BEEN RESTING MOST OF THE EVENING. PT DID GET UP AROUND THIS TIME AND SHE WHISPERED SHE WAS WAITING FOR HER DPOA. TOLD PT IT WAS 0432 IN AM AND SHE COULD REST IF SHE WANTED.
[2020-12-28 08:00] VITALS: BP 146/87
[2020-12-28 08:25] VITALS: BP 146/87
--- NOTE | 2020-12-28 18:37 | NUR ---
Alert and orientated X 4, odd conversations at times. Ambulatory with regular, steady gait. Denies SI/HI. Compliant with meds, takes whole with liquid. Breath sounds clear. Reg HR auscultated. Color pink with brisk capillary refill and palpable peripheral pulses. Independent with voiding. Active bowel sounds over soft, rounded abdomen.
[2020-12-28 20:01] VITALS: BP 155/92
[2020-12-28 21:00] VITALS: BP 155/92
--- NOTE | 2020-12-28 21:50 | NUR ---
PT IN ROOM STANDING BY BED. PT TOOK MEDS WITHOUT ANY ISSUES. PT WISPERING TO SELF. PT DENIES ANY COMPLAINTS OR PAIN. PT DIDN'T HAVE ANY GOALS OR CONCERNS THIS AYSE.
--- NOTE | 2020-12-29 02:30 | NUR ---
PT CAME OUT AT THIS TIME AND WAVED AT TECH. PT WENT BACK TO BED AFTER GETTING UP.
[2020-12-29 09:52] VITALS: BP 161/95
[2020-12-29 11:10] VITALS: BP 161/95
--- NOTE | 2020-12-29 11:15 | NUR ---
ASDSUMED CARE AT 0700 THIS MORNING. PT. UP, DRESSED AND AMBULATING ON THE UNIT. NO NEW PROBLEMS NOTED OR VOICED. TOOK HER MORNING MEDICATIONS WITHOUT PROBLEMS NOTED. SHE IS STABLE WHEN AMBULATING. REPORTS [facility] ARE PRESENT. DOES NOT ELABORATE ON THIS WHEN ASKED BY STAFF. SHE KEEPS SAYING THERE ARE PEOPLE OVER THERE ( SHE POINTS TO A CORNER OF THE ROOM WHERE NO ONE IS CURRENTLY IN THE CORNER. TOOK ER MORNING MEDICATIONS WITHOUT PROBLEMS NOTED. PARTICIPATED IN NAMRATA GROUP TODAY.
[2020-12-29 20:02] VITALS: BP 146/83
[2020-12-29 20:40] VITALS: BP 146/83
[2020-12-30] VITALS (9 sets, daily range): BP systolic 128–183; BP diastolic 70–105
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
--- NOTE | 2020-12-30 10:11 | NUR ---
Nutirtion: at follow up intake avg 72%. No wt loss from this admit or from prior admit in December 2019 at 135 lb. BUN 27, Cr 1.7. Calcium w/ vit D, vitamins and other meds reviewed. No acute nutrition concerns noted. Continues at low nutrition risk.
--- NOTE | 2020-12-30 11:11 | NUR ---
RT Progress Note- Brunilda' participation with recreation therapy has been variable since her admission. When encouraged to attend groups, Brunilda has been noted to be speaking to unseen others, at times explaining that she cannot attend group because she is busy with whomever she is talking to. When present, she is not fully engaged d/t being distracted by these voices and the conversations she is having with them. RECORDING STUDIO SETUP WORKER will continue to encourage further engagement and orient patient as needed.
--- NOTE | 2020-12-30 11:32 | NUR ---
REFUSED AM MEDICATION STATING THAT DR. CAGLE HAD HER SCHEDULED FOR SURGERY THIS AM AND SHE WOULD BE NOT ABLE TO EAT OR DRINK AND TAKE MEDICATIONS-WHEN ATTEMPTED TO REORIENT BECAME AGITATED TOOK MEDICATION CUP OUT OF HER HAND AND DUMPED IN IN TOILET-GATHERED HER BELONGINGS FROM ROOM AND STANDING IN HALLWAY-UNABLE TO BE REDIRECTED TO SIT IN DAYROOM INSISTING THAT SHE IS LEAVING SOON TO GET SURGERY-BECOMES AGITATED WITH ATTEMPTS TO REORIENT.AT MIKHAIL. 1020 FOUND BY RESPIRATORY THERAPY LYING IN HALLWAY-STATES SHE FELL-NOTED TO HAVE SUPERFICIAL LACERATION TO RIGHT CHEED WICH APPEARS TO HAVE BEEN CAUSED BY GLASSES-BRUISING TO RIGHT PENTECOSTAL. STERISTRIP APPLIED-CT SCAN COMPLETED. DR. MCCORD AND DR. RICHARDS NOTIFIED AND ON UNIT TO ASSESS. NEURO CHECKS COMPPLETED AND NO ABNORMALITIES NOTED RUBY RAILS DEVELOPER [id number] NAUSEA,DIZZINESS,VISUAL DIFFICULTY. MENTAL STATUS UNCHANGED CONTINUES TO BE ORIENTED X4-CONSTANTLY MUMBLING AND TALKING UNDERBREATH TO UNSEEN OTHERS. ORTHSTATIC BPS OBTAINED PER MD ORDER AND APPEAR WNL
[2020-12-30 11:51] LABS: ABSOLUTE NEUTROPHILS 7.4 thou/uL (1.4-8.2); BASOPHILS 0.7 % (0.0-2.0); EOSINOPHILS 0.2 % (0.0-3.0); HEMATOCRIT 33.1 % (37.0-47.0); HEMOGLOBIN 11.1 gm/dL (12.0-15.0); LYMPHOCYTES 12.8 % (24.0-44.0); MCH 29.4 pg (26.0-34.0); MCHC 33.4 g/dL (28.0-37.0); MONOCYTES 5.6 % (1.0-8.0); PLATELET COUNT 281 thou/uL (150-400); POLYS 80.7 % (36.0-66.0); RBC 3.76 mil/uL (4.20-5.00); RDW 14.1 % (10.5-14.5); WBC 9.2 thou/uL (4.0-11.0)
--- NOTE | 2020-12-30 11:53 | NUR ---
sharona Galicia and Radha Macias, patient contact, notified via phone. Appreciative of call and no concerns reported.
[2020-12-30 12:01] LABS: CALCIUM 10.1 mg/dL (8.5-10.1); CREATININE 1.8 mg/dL (0.6-1.0); POTASSIUM 3.8 mmol/L (3.5-5.1)
--- NOTE | 2020-12-30 18:42 | NUR ---
REFUSED [address] RIZWANA JOHNSON TOLD HER NOT TO TAKE IT-HAS CONTINUED ON FALLS PRECAUTIONS WITH BED ALARM ON WHILE IN ROOM-CHAIR ALARM ON WHILE IN DAYROOM-HAS SPENT MAJORITY OF AFTERNOON IN ROOM SITTING ON BED TALKING TO UNSEEN OTHERS-
--- NOTE | 2020-12-31 04:24 | NUR ---
PATIENT HAS BEEN IN HER ROOM MOST OF EVENING. SHE HAS BRUISING WITH SMALL ABRAISION AROUND RIGHT EYE AND TEMPEL AREA. ICE KRISTY PLACED ON IT FOR COMFORT IN EARLY EVENING AND THEN AGAIN LATER WITH TYLENOL 650MG PO GIVEN AT 0130. PATIENT WAS ABLE TO RELAX AND FALL BACK TO SLEEP. SHE TOOK HER MEDS WHOLE WITH WATER TONITE. SHE IS JUMPY AND WAKES EASILY WHEN SOMEONE MOVES HER DOOR MORE OPEN. ROUTINE ROUNDS TO ASSESS SAFETY AND STATUS OF PATIENT. BED IN LOW POSITION AND BED ALARM IS ON. CONTINUING TO MONITOR.
[2020-12-31 07:55] VITALS: BP 142/80
[2020-12-31 08:30] VITALS: BP 142/80
--- NOTE | 2020-12-31 08:43 | NUR ---
PT SITTING OUT IN DINING ROOM PLEASANT WITH PATIENT. PT HAS BRUISE TO RT EYE FROM GLASSES. PT TOOK MEDS THIS AM WITHOUT ANY ISSUES. PT LUNGS CLEAR. PT UP AD TIFFANY WITH STEADY GAIT.
[2020-12-31 19:41] VITALS: BP 150/83
--- NOTE | 2021-01-01 05:14 | NUR ---
12-31-20 CARE TRANSFERRED 0. PT AAOX1, VSS, RR EVEN AND NONLABORED ON RA. PT DENIES SI/HI AND PAIN. ZERO S/S OF ACUTE DISTRESS NOTED, PT WILL CONTINUE TO BE MONITOR PER [facility].
--- NOTE | 2021-01-01 09:02 | NUR ---
AURE recieved a phone call from Pt's sister, Mango WILSON. Mango Wilson voiced concerns about the Pt's pain level. Also that she noticed increased confusion when talking to the Pt and the Pt seems to be not improving. Mango WILSON wanted to know if the Pt could have a wheel chair or a cane. SW gave a brief update and addressed Mango Wilson's concerns. Informed Pt has acetaminophen ordered for pain. Also that that SW will talk to Doctor about a walker if needed. Mango Wilson also requested to speak to the psychiatrist when avaliable. AURE will follow up
--- NOTE | 2021-01-01 10:36 | NUR ---
Assumed care at 0700. pt was alert and oriented x4. calm, co-operative with care and assessments. Took her meds whole with thin liquid, no difficulty noted. pt ambulates with a steady gait. pt family called to get update on pt. denies si/hi, denies pain. at this time pt is in the day room socilaizing. will continue to monitor pt.
--- NOTE | 2021-01-01 15:42 | NUR ---
AURE spoke with Juan Daniel at [facility] concerning discharge. AURE provided and update and scheduled d/c for 01/02/2021 @10 am. Pt will be transported via [facility]
[2021-01-01 19:43] VITALS: BP 186/108
--- NOTE | 2021-01-01 20:09 | NUR ---
Assumed care on 01/01/21 @ 1900, seated in the day room. Holding hands in a fisted position. Cooperated with assessment and cooperated with deep breathing and hand relaxing exercise with this nurse. Reported moderate pain secondary to fall. Steri strips on right cheek bone. Will continue to monitor as per unit protocol.
[2021-01-01 23:51] VITALS: BP 186/108
[2021-01-02 07:15] VITALS: BP 164/95
--- NOTE | 2021-01-02 08:50 | NUR ---
AURE scheduled a new Pt appointment with Dr. Andrade for otpt psychiatry. Anderson at [facility] stated she would be able to assist the Pt with the telemed visits. Appointment is set for 01/06/21 @ 1430. MARI was notified of this appointment.
[2021-01-02] MEDS ORDERED: CALCIUM 600 +1 EAC1 PO (09:30)
[2021-01-02] MEDS ORDERED: GEODON 80 MG CA80 MG PO (09:30)
--- NOTE | 2021-01-02 09:35 | NUR ---
Alert and orientated X4. Some confused speech. Denies SI/HI. Up and ambulatory with regular, steady gait. Bruise on R cheekbone with steristrips in place. Breath sounds clear. Reg HR auscultated. Color pink with brisk capillary refill and palpable peripheral pulses. No edema. Independent with voiding. Active bowel sounds over soft, flat abdomen. Eager to be discharged. Completed patient satisfaction form independently. Report called to [facility] to Anna Jarquin. Aware of transfer, expecting her at 1000. Also notified guardian Radha Macias ManuelAlphonso of transfer, initially ambivalent about transfer but then gave consent. Also requesting call from Dr. Andrade for outpatient, number given.
[2021-01-02 09:51] VITALS: BP 164/95
--- NOTE | 2021-01-02 10:37 | NUR ---
Took shower independently. Discharged per WC per [facility] with Araceli Marquez, spray unit feeder. No s/o distress.
--- NOTE | 2021-01-02 14:01 | NUR ---
lead database administrator called wanting clarification on discharge medications. Annasteve Bernardois states that pt had been on several BP medications prior to admission to [facility] and currently she is on none. Spoke with Dr. Lind. He advises them to contact her medical review coordinator to manage BP meds. Anna Jarquin called back, agrees with plan.
--- NOTE | 2021-01-04 13:48 | D ---
[facility] [place] [address] DISCHARGE SUMMARY Name: BHAVNA DUNCAN Room #: 527B-B [facility] IN M.R.#: [id number] Admission: 12/23/20 Attend Phys: Jorden Lind DO Discharge: 01/02/21 Date of : 44 Report #: [id number] THIS REPORT FOR: cc: Reese Glover Ryan D. DO Kerstein, Andrew H. DO ~ DATE OF SERVICE: 01/02/2021 PSYCHIATRIC DISCHARGE SUMMARY ATTENDING PSYCHIATRIST: Jorden Lind DO. CALL CENTER CONSULTANT AT THE TIME OF DISCHARGE: Roosevelt García MD DISCHARGE DIAGNOSES: Major neurocognitive disorder, likely due to Alzheimer disease with behavioral disturbance, improved. MEDICAL COMORBIDITIES: Include right-sided laceration on her zygomatic process due to a witnessed fall. Additional comorbidities include history of UTI with Klebsiella; chronic kidney disease, stage 4. Renal ultrasound unremarkable; hypertension, on Norvasc and lisinopril. DISCHARGE PLAN: The patient is discharging back to Memory Care at [facility]. MEDICAL AND PSYCHIATRIC CARE: Per receiving facility. I believe Dr. Reese Glover, hydraulic press servicer is caring further. It should be noted her hypertension meds were discontinued due to fall, some low blood pressures, they should be resumed per the residential medical insurance coder, again I believe is Dr. Glvoer. LABORATORY DATA: From this admission, hematology 11.1 and 33.1. 12/30/2020, white count 9.2, platelet count 281. Chemistries on 12/30/2020, sodium 138, potassium 3.8, chloride 100, bicarbonate 20, anion gap 10, BUN 27, creatinine 1.8, which is high, estimated GFR 27. She does, however, stay around creatinine 1.7 and 1.8. Glucose 119, calcium 10.1, magnesium 1.9, total bilirubin 0.4, AST 7, ALT 15, albumin 3.9. Vitamin B12 1234. Vitamin D 64.9, folate 38.5. TSH 2.753. Trace blood in her urine on 12/27/2020, 1+ leukocyte esterase, ____ mucus, bacteria was few. Result of the culture was normal genitourinary noel. COVID-19 PCR serology was negative on admission. Toxicologies were all negative. ACTIVITY LEVEL: As tolerated. 03/05 care, regular diet, supervision and some prompting with bathing, dressing. [facility] [address] [place] [address] DISCHARGE SUMMARY Name: BHAVNA DUNCAN Room #: 527B-B [facility] IN ..#: [id number] Admission: 12/23/20 Attend Phys: Jorden Lind DO Discharge: 01/02/21 Date of : 44 Report #: [id number] REASON FOR ADMISSION: Back in mid December was a 80-year-old female had increased displays of psychosis and anxiety in the nursing facility. She was moving things around, disorganized fashion, referred to Dr. Andrade, which was concerning. She also said that the governor [facility] was persecuting her. HOSPITAL COURSE: The patient was admitted to Geriatric Psychiatry Unit. Dr. Andrade, started on Geodon, I continued to titrate it to 80 mg b.i.d. The patient has had some degree of fixed delusion, it has varied in theme, I do not think we are going to stop it out completely. Occasional exit seeking, but does feels she has good memory care. No SI, no HI on day of discharge. PHYSICAL EXAMINATION: VITAL SIGNS: On the day of discharge, temperature 37.2, pulse 73, respirations 16, BP 154/95, O2 sat 97%. MUSCULOSKELETAL: Normal gait and station. Wearing glasses. Fair grooming. MENTAL STATUS EXAMINATION: This is a well-developed, age-appearing female. Attention fair. Concentration limited. Speech is normal in rate and tone. Thought process is linear and goal directed. Thought content, focused somethings of delusion, - not believing she is to return to Memory Care facility for example. No SI, no HI. some helplessness, no hopelessness. Denied auditory, visual, or tactile hallucinations. Memory not formally tested and noted to be impaired. Insight limited. Judgment limited. Fund of knowledge below average. PROGNOSIS: For this patient is guarded given moderately advanced dementia, age of 80. Medical comorbidities including her hypertension. <ELECTRONICALLY SIGNED> By: Jorden Lind DO 01/04/21 1348 32 00 Jorden Lind, /nt
== END 2021-01-02 10:15 | DRG 57 ==
LOC: SBH
PROVIDERS: Internal Medicine; Nurse Practitioner Family; ADMIT Psychiatry & Neurology Psychiatry; ATTEND Psychiatry & Neurology Psychiatry
DX: G30.9 Alzheimer's disease, unspecified (principal); F02.81 Dementia in other diseases classified elsewhere, unspecified severity, with behavioral disturbance; N17.9 Acute kidney failure, unspecified; N18.4 Chronic kidney disease, stage 4 (severe); F01.51 Vascular dementia, unspecified severity, with behavioral disturbance; F41.9 Anxiety disorder, unspecified; E78.5 Hyperlipidemia, unspecified; F20.9 Schizophrenia, unspecified; F32.9 Major depressive disorder, single episode, unspecified; I12.9 Hypertensive chronic kidney disease with stage 1 through stage 4 chronic kidney disease, or unspecified chronic kidney disease; Z88.0 Allergy status to penicillin; Z88.8 Allergy status to other drugs, medicaments and biological substances; Z79.82 Long term (current) use of aspirin; Z79.899 Other long term (current) drug therapy
CPT/HCPCS: 10880

== ENCOUNTER 2021-01-05 14:07 | Emergency (ER) | payer OTHER ==
[~2021-01-05] VITALS: Ht 160 cm; Wt 61.2 kg
[~2021-01-05 14:07] MED LIST changes: +BENZTROPINE MES1 MG PO; +CALCIUM 600 +1 EAC1 PO; +CALCIUM ANTACI400 MG PO; +COZAAR 50 MG TA50 MG PO; +GEODON 80 MG CA80 MG PO; +GEODON40 MG PO; +HYDRALAZINE 2525 MG PO; +LIPITOR 10 MG10 M1 PO; +LOPERAMIDE 2 MG2 M1 PO; +LORAZEPAM 0.50.5 MG PO; +LORAZEPAM0.5 MG/1 M PO; +OXYBUTYNIN 5 MG5 M2 PO; +SPIRONOLACTONE25 MG PO
[2021-01-05] MEDS ORDERED: ANTI-DIARRHEAL2 MG PO (14:12)
[2021-01-05] MEDS ORDERED: MILK OF MA400 MG/5 M PO (14:13)
[2021-01-05] MEDS ORDERED: GERI-LANTA LIQ355 M1 PO (14:14)
[2021-01-05] MEDS ORDERED: HYDRALAZINE 2525 M1 PO (14:16)
[2021-01-05] MEDS ORDERED: LORAZEPAM 0.50.5 MG PO (14:19)
[2021-01-05] MEDS ORDERED: LORAZEPAM I2 MG/1 ML PO (14:20)
[2021-01-05] MEDS ORDERED: TYLENOL325 M1 PO (14:21)
[2021-01-05] MEDS ORDERED: CEPACOL SORETH1 EAC1 PO (14:22)
[2021-01-05] MEDS ORDERED: OXYBUTYNIN 5 MG5 M2 PO (14:23)
[2021-01-05] MEDS ORDERED: ATORVASTATIN CA10 MG PO (14:24)
[2021-01-05] MEDS ORDERED: SPIRONOLACTONE25 MG PO (14:24)
[2021-01-05] MEDS ORDERED: LOSARTAN POTASS50 MG PO (14:25)
[2021-01-05 14:26] LABS: ABSOLUTE NEUTROPHILS 6.9 thou/uL (1.4-8.2); BASOPHILS 0.8 % (0.0-2.0); EOSINOPHILS 0.5 % (0.0-3.0); HEMATOCRIT 33.9 % (37.0-47.0); HEMOGLOBIN 11.3 gm/dL (12.0-15.0); LYMPHOCYTES 20.1 % (24.0-44.0); MCH 29.6 pg (26.0-34.0); MCHC 33.4 g/dL (28.0-37.0); MCV 88.5 fL (80.0-100.0); MONOCYTES 5.5 % (1.0-8.0); PLATELET COUNT 266 thou/uL (150-400); POLYS 73.1 % (36.0-66.0); RBC 3.83 mil/uL (4.20-5.00); RDW 13.8 % (10.5-14.5); WBC 9.5 thou/uL (4.0-11.0)
[2021-01-05] MEDS ORDERED: BENZTROPINE MES1 MG PO (14:26)
[2021-01-05 14:36] LABS: CALCIUM 10.8 mg/dL (8.5-10.1); CREATININE 2.2 mg/dL (0.6-1.0); POTASSIUM 3.7 mmol/L (3.5-5.1)
[2021-01-05 14:42] LABS: ALBUMIN 3.9 g/dL (3.4-5.0); TOTAL BILIRUBIN 0.5 mg/dL (0.2-1.0); TOTAL PROTEIN 6.8 g/dL (6.4-8.2)
[2021-01-05 14:50] LABS: URINE BILIRUBIN NEGATIVE (Negative); URINE BLOOD NEGATIVE (Negative); URINE CLARITY CLEAR; URINE COLOR YELLOW; URINE GLUCOSE-RANDOM* NEGATIVE (Negative); URINE KETONES NEGATIVE (Negative); URINE NITRITE-REFLEX NEGATIVE (Negative); URINE PROTEIN (DIPSTICK) NEGATIVE (Negative); URINE UROBILINOGEN 0.2 E.U./dl (0.2-1.0)
[2021-01-05 14:51] LABS: URINE LEUKOCYTES-REFLEX 2+ (Negative)
[2021-01-05 15:06] LABS: HYALINE CASTS 0-3 Few /LPF (None Seen); SQUAMOUS 0-3 Few /LPF (0-3)
[2021-01-05 15:07] LABS: URINE WBC-REFLEX 0-5 Rare /HPF (0-5)
[2021-01-05 15:08] LABS: URINE RBC 0-2 Rare /HPF (0-2)
[2021-01-05 15:09] LABS: BACTERIA-REFLEX 1-9 Few /HPF (None Seen)
[2021-01-05 15:10] LABS: CRYSTALS None Seen /LPF (None Seen)
[2021-01-05 16:16] VITALS: BP 119/80
== END 2021-01-05 16:16 | disposition home or self-care (01) ==
LOC: ER 14:07
PROVIDERS: Emergency Medicine
DX: R45.1 Restlessness and agitation (principal); I10 Essential (primary) hypertension; E78.5 Hyperlipidemia, unspecified; Z79.82 Long term (current) use of aspirin; Z79.899 Other long term (current) drug therapy; Z88.0 Allergy status to penicillin; Z88.8 Allergy status to other drugs, medicaments and biological substances